=== PATIENT | male | born 1980 | race Caucasian/White ===

== ENCOUNTER 2021-02-25 12:34 | Emergency (ER) | payer BC, SELFPAY ==
--- NOTE | ~2021-02-25 | XR_ITS ---
EXAMINATION: XR hand RT min 3V DATE: 02/25/2021 13:27 INDICATION: Right hand pain. TECHNIQUE: 3 views of right hand were obtained. COMPARISON: None. FINDINGS: Bone alignment is normal. No fracture. There is mild osteoarthritis of third and fourth met acarpophalangeal joints and many of the interphalangeal joints. IMPRESSION: 1. Mild polyarticular osteoarthritis. Reviewed, dictated and finalized at location A. [facility] [employer]
[2021-02-25 12:44] VITALS: BP 137/89; PULSE 80; RESP 16; TEMP 36.6; O2SAT 97
--- NOTE | 2021-02-25 13:54 | ED.UPPEXIN ---
HPI - Extremity Injury (Upper) General Chief Complaint: Extremity Injury, Upper Stated Complaint: right hand pain Source: patient Mode of arrival: ambulatory History of Present Illness HPI narrative: Patient is a 40-year-old male who presents complaining of right hand pain. He denies known injury. Patient reports intermittent tingles to fingers, reports mild swelling and increased pain over the past day. He denies significant medical history. He did reports taking naproxen without relief. Patient reports he is constantly moving and lifting with hand. MD complaint: injury to: right Related Data Home Medications Medication Instructions Recorded Confirmed naproxen 500 mg PO BID PRN 02/25/21 02/25/21 Allergies Allergy/AdvReac Type Severity Reaction Status Date / Time No Known Allergies Allergy Verified 02/25/21 13:04 Review of Systems Review of Systems: CONSTITUTIONAL: Denies fever, chills, or sweats. EYES: Denies visual changes, redness, or discharge. ENT: Denies rhinorrhea, congestion, sore throat, or otalgia. CARDIOVASCULAR: Denies chest pain, palpitations, or edema. RESPIRATORY: Denies cough or dyspnea. GASTROINTESTINAL: Denies abdominal pain, nausea, vomiting, or diarrhea. GENITOURINARY: Denies dysuria or hematuria. SKIN: Denies rash or itching. MUSCULOSKELETAL: Reports right hand pain NEUROLOGIC: Denies headache, numbness, dizziness, or weakness. PSYCHIATRIC: Denies anxiety or depression. [facility] History Surgical History H/O wrist surgery Social History Social History Smoking status: Never smoker Alcohol intake: current Alcohol use details: Occasional Substance use: never Living arrangements: with family Occupation/Education: occupation Comments At the time of signature, I have reviewed and agree with nursing past medical, surgical, social, and family history unless otherwise noted. Please see nursing chart for further information. There is no relevant family history pertinent to the presenting complaint. Exam Narrative: GENERAL: Well-appearing, well-nourished, and in no acute distress. HEAD: Normocephalic, atraumatic. EYES: EOMI. No redness or drainage. Conjunctiva are normal. ENT: Mucous membranes pink and moist. CHEST: No respiratory distress. HEART: Regular rate and rhythm. EXTREMITIES: Normal range of motion. Mild swelling to right hand, tenderness with palpation, distal sensation intact, good capillary refill SKIN: Warm, dry, no rash. NEURO: No focal deficits. Alert and oriented x3. Gait steady. PSYCH: Normal affect. No signs of depression or anxiety. Course Vital Signs Vital signs: Vital Signs Temperature 36.6 C 02/25/21 12:44 Pulse Rate 80 02/25/21 12:44 Respiratory Rate 16 02/25/21 12:44 Blood Pressure 137/89 02/25/21 12:44 Pulse Oximetry 97 02/25/21 12:44 Temperature 36.6 C 02/25/21 12:44 Pulse Rate 80 02/25/21 12:44 Respiratory Rate 16 02/25/21 12:44 Blood Pressure 137/89 02/25/21 12:44 Pulse Oximetry 97 02/25/21 12:44 Reviewed. Patient has been instructed to follow-up with his PCP regarding his blood pressure. MDM - Extremity Injury (Upper) Differential Diagnosis Differential diagnosis: Likely other (Sprain, strain, fracture, contusion) Critical Care Time Critical Care Time Critical Care Time: No Discharge Plan Discharge Clinical Impression: Sprain and strain of right hand Patient Disposition: Home, Self-Care Condition: Stable Instructions: Arthritis (ED) Additional Instructions: Rest, ice and elevate hand for comfort. You may take ibuprofen as directed. Take prednisone as directed. Follow-up with your PCP in 3 to 5 days if symptoms persist. If you develop increased pain, swelling, numbness or tingling to fingers, please go to the emergency department for further evaluation. Pres
== END 2021-02-25 14:10 | disposition home or self-care (01) ==
PROVIDERS: Emergency Provider Nurse Practitioner; PCP Family Medicine
DX: S63.91XA Sprain of unspecified part of right wrist and hand, initial encounter (principal); S66.911A Strain of unspecified muscle, fascia and tendon at wrist and hand level, right hand, initial encounter; X58.XXXA Exposure to other specified factors, initial encounter; Y92.9 Unspecified place or not applicable; Z86.16 Personal history of COVID-19
CPT/HCPCS: 73130; 99203; G0463